=== PATIENT | female | born 2000 | race Caucasian/White ===

== ENCOUNTER 2021-11-27 01:33 | Emergency (ER) | payer SELFPAY ==
[~2021-11-27] VITALS: Ht 149.9 cm; Wt 50.8 kg
[2021-11-27 01:40] VITALS: BP 119/81
--- NOTE | 2021-11-27 02:02 | NUR ---
D/C' PER DR BENTLEY IN [employer] CUST[employer]. NO NURSING INTERVENTIONS REQUIRED
== END 2021-11-27 02:02 ==
LOC: MED 01:33
DX: Z02.89 Encounter for other administrative examinations (principal); V89.2XXA Person injured in unspecified motor-vehicle accident, traffic, initial encounter; Y93.89 Activity, other specified; Y92.89 Other specified places as the place of occurrence of the external cause; Y99.8 Other external cause status
CPT/HCPCS: 99283